=== PATIENT | male | born 1960 | race Caucasian/White ===

== ENCOUNTER 2022-07-17 06:08 | Day surgery (SDC) | payer OTHER, SELFPAY ==
[2022-07-17] VITALS (15 sets, daily range): BP systolic 100–145; BP diastolic 70–95; PULSE 64–85; RESP 11–111; TEMP 36.1–36.6; O2SAT 89–97; BMI 31.6
[2022-07-17] MEDS: LACTATED RINGERS 1000 ML 1,000 ML 100 ML IV ×2 (06:51→10:09)
[2022-07-17] MEDS: SODIUM CHLORIDE 0.9 % (FLUSH) 10 ML SYRINGE IVF (06:52)
--- NOTE | 2022-07-17 06:58 | SUR.PREOP ---
TIME?OUT:?716 PT/RN/MDA?VERIFICATION?OF?SURGICAL?SITE,?PROCEDURE,?AND?CONSENT OBTAINED?PRIOR?TO?INVASIVE?PROCEDURE.716
--- NOTE | 2022-07-17 07:23 | W.PM.NB ---
Nerve Block Nerve Block Time Seen by Provider: 07:20 Date Seen: 07/17/22 Type of block requested by surgeon for post-operative analgesia: supraclavicular Side: left Time out performed: Yes Verification of patient name: Yes Verification of date of : Yes Site marking: site marked Name of person performing procedure: Keaton Continuous monitoring Was continuous monitoring of O2 sat, B/P, air deodorizer servicer, recorded every 15 minutes?: Yes Procedure Checklist: sterile prep, needles and gloves Ultrasound guided. Images saved: Yes Medications given in 5ml increments after negative aspiration: Ropivicaine %: 0.5 mL: 20 Needle gauge: 22 Decadron (mg): 10 Precedex (mcg): 25 Patient tolerated procedure well: Yes Block Charges Block Charge (with Pro Fee): Brachial Plexus Use of Ultrasound Machine for Block: Yes- US Guidance/pain block
--- NOTE | 2022-07-17 07:24 | W.ANESCHARGE ---
Anesthesia Charges Start Date/Time Anesthesia Start Date: 07/17/22 Anesthesia Start Time: 07:52 Stop Date/Time Anesthesia Stop Date: 07/17/22 Anesthesia Stop Time: 10:52
[2022-07-17] MEDS: EPINEPHrine 1 MG in SODIUM CHLORIDE IRRIG SOLUTION 3,000 ML 3001 MG IRRIGATION ×8 (08:00→10:30)
[2022-07-17] MEDS: CEFAZOLIN 2 GM in 0.9 % SODIUM CHLORIDE Mini-bag 100 ML IVPB (08:15)
--- NOTE | 2022-07-17 10:34 | P.ORPRC_ITS ---
Procedure Note Date of procedure: 07/17/22 Procedure: PREOPERATIVE DIAGNOSES: 1. Left shoulder rotator cuff tear - supraspinatus, infraspinatus, subscapularis with some atrophy 2. Left shoulder AC degenerative joint disease, primary, moderate-severe POSTOPERATIVE DIAGNOSES: 1. Left shoulder rotator cuff tear - supraspinatus, infraspinatus, and subscapularis with some atrophy 2. Left shoulder anterior and superior labral tearing 3. Left shoulder long head of the biceps rupture, remote 4. 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 Left shoulder arthroscopic rotator cuff repair. 2. Left shoulder arthroscopic extensive glenohumeral debridement SURGEON: Boris Osuna MD [employer] CONSULTANT: Brandon GERARD. Of note, a skilled music assistant was critical for this case to aide in patient positioning, suture manipulation, arm positioning, instrument positioning, and closure. ANESTHESIA: General plus preoperative supraclavicular block. EBL: 20 mL IMPLANTS: Arthrex 4.75 mm BioComposite SwiveLock suture anchor (x1); 2.6 mm FiberTak RC (x1); 5.5 mm BioComposite corkscrew suture anchor (x1); 5.5 mm BioComposite SwiveLock suture anchor (x2). COMPLICATIONS: None evident INDICATIONS: The patient is a pleasant, 61-year-old male who has experienced left shoulder pain that has been increasing in recent time. Physical exam and imaging were consistent with a rotator cuff tear. Given their findings, as well as the weakness and pain, and inadequate response to nonoperative management, recommendation was made for surgery. FINDINGS: Exam under anesthesia revealed stable shoulder with excellent range of motion. The diagnostic arthroscopy revealed grade 3 chondromalacia humeral head. Glenoid was relatively healthy with grade 2 chondromalacia. The Subscapularis tendon was torn and retracted medially along with the, tissue. The long head of the biceps tendon was absent from the joint consistent with remote tear. The superior rotator cuff tendon was found to be torn full- thickness through the entire supraspinatus, infraspinatus in addition to the upper border subscapularis. The labrum was degeneratively frayed in the anterior and superior aspects. No loose bodies were identified within the pouch or subscapularis recess. PROCEDURE: Following a thorough discussion of risks, benefits, and alternatives, consent was obtained and the left shoulder was marked. The patient was brought to the operating room and placed supine on the operating table. Induction of anesthesia was completed after preoperative supraclavicular block was administered in preop holding. Appropriate time out was performed identifying proper patient, site, and procedure. 2 g IV Ancef was administered within 1 hour of incision preoperatively. The left upper extremity was prepped and draped in the appropriate sterile fashion using ChloraPrep prep. This was after the patient was positioned in the beach chair with their head in neutral alignment and all bony prominences well padded. The shoulder was insufflated with 20mL of normal saline via an 18g spinal needle from a posterior approach. An 11 blade skin incision allowed a blunt trochar to be inserted and diagnostic arthroscopy to be performed with the findings as noted above. An anterior portal was established with an outside in technique. This allowed the probe to be inserted and confirm the diagnostic arthroscopic findings. The shaver was then inserted and allowed debridement of the anterior and superior labrum as well as the biceps stump, lesser tuberosity bone tissue, humeral head chondral tissue, and pathologic remaining rotator cuff tissue. Following this, the upper border subscapularis was repaired after debriding the lesser tuberosity with the shaver and [place] cautery. Subscapularis was captured in horizontal mattress fashion with a fiber tape suture. The tails were brought to a single anchor in the lesser tuberosity with excellent reapproximation of the subscap tendon and good excursion/tension. Thereafter, the subacromial space was entered. Here, a complete bursectomy was performed. Previous subacromial decompression was evident. 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 As it measured approximately 15 mm medial-lateral and 10 mm anterior-posterior, we decided to let this be given a significant amount of the deltoid attachment remained. A decision was made to avoid a distal clavicle excision given the fair rotator cuff tissue quality. While the repair was possible, if this retear size, he will be at risk for any anterior superior escape given his prior S.A. D performed elsewhere and a distal clavicle excision would only increase such a risk. Further inspection of the supraspinatus and infraspinatus rotator cuff was performed. This identified the tear as noted above. The margins of the tear were debrided, and the greater tuberosity was debrided with a combination of the apollo cautery, shaver, and bur on reverse setting. [After gentle decortication, 2 medial anchors were placed. A 2.6 mm FiberTak RC was placed anterior medial. 5.5 mm BioComposite corkscrew suture anchor posterior medial. All 4 tails were passed from each anchor independently and were tied sequentially to help sequentially relieve the tension. The tails were then brought to 2 separate lateral anchors. Prior to anchor commercial relief driver removal, the eyelet sutures were tugged on for each anchor and found that the anchor had excellent stability within the bone. The shoulder did require some abduction to help with reapproximation of the rotator cuff. Thus, a bump was placed in the sling eventually. The shoulder was placed through range of motion and found to be stable. The rotator cuff was re-probed and found to be stable. Instruments were removed. Excess fluid was drained, closure performed with 4-0 Monocryl and Steri-Strips. Dressings were applied. Sling was applied. The patient was awoken from anesthesia and transferred to the PACU in stable condition. A skilled music assistant was critical for this case to aid in patient positioning, limb positioning, skill to manipulate arthroscopic instruments and camera, suture management, patient safety, and closure. PLAN: 1. Elbow, forearm, wrist and digit range of motion of operative extremity as tolerated. 2. Encouraged ice. 3. Percocet for pain as needed. 4. Sling at all times except for ROM and showering. 5. Follow up with PA visit in 1-2 weeks for wound check. Initiate physical therapy following that visit for passive range of motion. Initiate active assisted range of motion at 4-6 weeks. Therapy progression will be slow given the massive tear size and tissue quality. May do pendulums now.
--- NOTE | 2022-07-17 12:33 | W.ANESCHARGE ---
Anesthesia Charges Start Date/Time Anesthesia Start Date: 07/17/22 Anesthesia Start Time: 07:52 Stop Date/Time Anesthesia Stop Date: 07/17/22 Anesthesia Stop Time: 10:56
--- NOTE | 2022-07-17 12:34 | W.ANESCHARGE ---
Anesthesia Charges Start Date/Time Anesthesia Start Date: 07/17/22 Anesthesia Start Time: 07:52 Stop Date/Time Anesthesia Stop Date: 07/17/22 Anesthesia Stop Time: 10:56
== END 2022-07-17 14:00 | disposition home or self-care (01) ==
PROVIDERS: PCP Surgery; Visit Provider Orthopaedic Surgery Sports Medicine
PROC: (CPT 29805; principal; 2022-07-17 07:45)
DX: M75.122 Complete rotator cuff tear or rupture of left shoulder, not specified as traumatic (principal); M19.012 Primary osteoarthritis, left shoulder; S43.432A Superior glenoid labrum lesion of left shoulder, initial encounter; S46.112A Strain of muscle, fascia and tendon of long head of biceps, left arm, initial encounter; M94.212 Chondromalacia, left shoulder; G89.18 Other acute postprocedural pain
CPT/HCPCS: 29827; 29823; 01630; 64415; 76942; C1713; J0171; J0330; J0690; J1100; J2250; J2370; J2704; J2710; J2795; J3010; J7120; L3670

== ENCOUNTER 2022-09-18 13:45 | Outpatient (RCR) | payer OTHER, SELFPAY | END 2022-11-07 14:34 | disposition home or self-care (01) | PROVIDERS: PCP Surgery; Visit Provider Physician Assistant Surgical | DX: Z98.890 Other specified postprocedural states (principal); M25.512 Pain in left shoulder; M62.81 Muscle weakness (generalized); Z51.89 Encounter for other specified aftercare | CPT/HCPCS: 97110; 97140; 97161; 97530 ==

== ENCOUNTER 2022-10-18 19:09 | Emergency (ER) | payer OTHER, SELFPAY ==
[2022-10-18] VITALS (8 sets, daily range): BP systolic 143–198; BP diastolic 89–104; PULSE 68–109; RESP 16–18; TEMP 36.7; O2SAT 94–99; BMI 31.7
[2022-10-18] MEDS: 0.9 % SODIUM CHLORIDE 1000 ml 1,000 ML IV (19:15)
[2022-10-18] MEDS: predniSONE 20 MG TABLET 60 MG PO (19:15)
[2022-10-18] MEDS: EPINEPHrine 0.3 MG PEN IM (19:15)
[2022-10-18] MEDS: FAMOTIDINE 10 MG/ML inj 20 MG IVP (19:20)
--- NOTE | 2022-10-18 19:27 | ED_ITS ---
HPI - Allergic Reaction General Time Seen by Provider: 17:15 Date Seen: 10/18/22 Chief complaint: Allergic Reaction Stated complaint: Bee sting, allergic--hives, face numb, swelling Time Seen by Provider: 10/18/22 19:27 Source: patient, RN notes reviewed and old records reviewed Mode of arrival: ambulatory Limitations: no limitations History of Present Illness HPI narrative: Patient is a very pleasant 62-year-old gentleman states healthy who comes to the emergency room with an allergic reaction after sustaining a bee sting. He believes that he was stung by a ground bee. He notes that he found some bees in his house and he was distress trying to destroyed the nest when he had a single sting to the right knee. Approximately 15 minutes after this he started noticing that he had hives around that area and he had itching of his palms. He then noted some swelling of his lower lip. He states that he took 2 Benadryl and did not feel that he was improving and thus he and his girlfriend per came to the emergency room. He notes however that during the ride he did not feel that he was worsening. Here in the emergency room patient notes no difficulty breathing but does feel that his lips are swollen. He denies difficulty swallowing, chest pain, nausea or vomiting. He notes that hives are also in his axilla. He states that yesterday he was stung by a wasp in last week had an episode of being stung at least 6 times any did not react at that time. He feels that he is dealing with ground bees. Patient is seen in the emergency room at 1915 hours. Staying was approximately 1 hour ago. complaint: allergic reaction, hives and facial swelling Related Data Home Medications Medication Instructions Recorded Confirmed atorvastatin 20 mg tablet 20 mg PO QDAY 05/27/22 10/18/22 losartan 50 mg tablet 50 mg PO DAILY 05/27/22 10/18/22 Previous Rx's Medication Instructions Recorded epinephrine 0.3 mg/0.3 mL 0.3 ml IM Q5-15M PRN #2 ea 10/18/22 injection, auto-injector (EpiPen 2-Alfredo) prednisone 20 mg tablet 20 mg PO BID #10 tabs 10/18/22 Allergies Allergy/AdvReac Type Severity Reaction Status Date / Time bee venom protein (honey bee) Allergy Intermediate Hives Verified 10/18/22 19:29 Review of Systems Status of ROS Reports: 10 or more systems reviewed and unremarkable except as noted in History and below Const Denies: fever, chills or fatigue Eyes Denies: change in vision ENMT Reports: swelling of lips/tongue; Denies: throat pain, neck pain, throat swelling, difficulty swallowing or hoarseness Cardio Denies: chest pain, palpitations or shortness of breath with exertion Resp Denies: shortness of breath, cough, wheezing or stridor GI Denies: abdominal pain, nausea, vomiting or difficulty swallowing Denies: painful urination Musculo Denies: neck pain Neuro Denies: headache, numbness in extremities or weakness in extremities Endo Denies: fatigue Allergy/Immuno Denies: throat swelling or wheezing PFSH PFSH Medical History Tear of left biceps muscle ?S46.212A - Strain of muscle, fascia and tendon of other parts of biceps, left arm, initial encounter (ICD-10) Dislocation of shoulder region ?S43.006A - Unspecified dislocation of unspecified shoulder joint, initial encounter (ICD-10) Anterior dislocation of right shoulder ?S43.014A - Anterior dislocation of right humerus, initial encounter (ICD-10) Surgical History S/P rotator cuff repair (07/17/22) ?Z98.890 - Other specified postprocedural states (ICD-10) Social History Smoking Status: Never smoker Do you use any of these nicotine containing products: None Second hand tobacco smoke exposure: No How often do you have a drink containing alcohol: never AUDIT-C Alcohol total score: 0 Non-prescribed substance use: denies use Caffeine: Yes (coffee 8c/day) Exam Narrative: Exam Narrative: Alert and oriented. Face is flushed. He does have noticeable swelling of his lower lip. Possibly slight swelling of his tongue but no clearing of his throat stridor or difficulty with talking. Heart with a tachycardic rate but normal rhythm. Lungs are clear bilaterally without wheezing. Abdomen soft nontender. Examination of the skin shows lacy erythematous raise hives on the right knee but also a lieu lacy her appearance on the left knee and on the trunk. Moving all extremities. Const: Vital Signs, click to edit/add: Vital Signs - 24 hr 10/18/22 19:15 10/18/22 19:27 10/18/22 19:36 Temperature 98.1 F Pulse Rate 107 H Pulse Rate [Right Pulse Oximeter] 108 H Respiratory Rate 18 18 Blood Pressure 149/92 H Blood Pressure [Le ft Upper Arm] 198/89 H Pulse Oximetry 95 99 94 Oxygen Delivery Me thod Room Air 10/18/22 20:02 10/18/22 20:32 Temperature Pulse Rate 109 H 101 H Pulse Rate [Right Pulse Oximeter] Respiratory Rate 16 Blood Pressure 166/104 H 159/99 H Blood Pressure [Le ft Upper Arm] Pulse Oximetry 94 94 Oxygen Delivery Me thod Documenting provider has reviewed patient's vital signs: yes Course Course Hospital Course: At this time patient is a seems to be experiencing a systemic reaction to of be staying. Given this swelling of his lips feel it is necessary to give him EpiPen. Will place an IV and check labs to include CBC and comprehensive panel. Will also give 1 L of normal saline, famotidine 20 mg IV, prednisone 60 mg p.o.. Patient will be on the quality assurance monitor body. He is told he will likely be here 4-6 hours. Reevaluation(s) Reevaluation #1: Patient noted to be much improved. He states his swelling is almost completely gone. He has no more tingling of his tongue. His hives have resolved. He is wishing to go home. He lives in [place] which is a distance from here. I did state that 6 hours observation is what normally is recommended but I would be okay with 4 hours as long as he has no recurrence of symptoms. He does agree to this. Vital Signs Vital signs: Initial Vital Signs Pulse Oximetry 95 10/18/22 19:15 Vital Signs Pulse Oximetry 95 10/18/22 19:15 Temperature 98.1 F 10/18/22 19:27 Pulse Rate 101 H 10/18/22 20:32 Respiratory Rate 16 10/18/22 20:02 Blood Pressure 159/99 H 10/18/22 20:32 Pulse Oximetry 94 10/18/22 20:32 Oxygen Delivery Method Room Air 10/18/22 19:27 MDM - Allergic Reaction MDM Narrative Medical decision making narrative: 1. Allergic reaction bee sting- Patient received EpiPen, famotidine 20 mg IV, prednisone 60 mg p.o., 1 L of normal saline. Has had resolution of his hives. Almost complete resolution of the swelling of his upper lip. He has agreed to stay up to 4 hours here in the emergency room given the fact that his home is rather remote. upon discharge discharge, he will continue Benadryl 50 mg every 6 hours last dose tomorrow night. He will continue prednisone 20 mg p.o. b.i.d. for 2 more days 1st dose tomorrow morning. Patient is requesting medications be sent to [facility] in [place]. Will also send prescription for EpiPen duo pack. He has been watching videos about epi administration while he has been in the ER. 2. Hypokalemia -mild at 3.1. Replace with 50 mEq p.o. potassium. Recommend increased potassium containing foods such as potatoes and bananas. 3. Disposition -patient has agreed to stay up to 4 hours. He initially wanted to go home. He does understand that literature often support 6 hours but does not want to stay that long. After 4 hours will allow him to go home. We did talk about his choice of hospital since he does live approximately 30 minutes away. [place] [id number] hospital is actually closer at 20 minutes. I have also asked him to look into what seek a hospital which may be even closer than that. He really needs to go to the nearest appropriate facility. Or call 911 as even 1st responders have the ability to give epinephrine. We talked about the chance of him reacting much more quickly and more violently lid next time to any sort of bee sting. Dictation done with voice recognition, and as a result, wrong word or [id number] substitutions may have occurred.? There may be errors in the script that have gone undetected.? Please consider this when interpreting information found in this chart. Medical Records Attestation: I reviewed the patient's medical records. Lab Data Attestation: I reviewed the patient's lab results. Labs: Lab Results 10/18/22 Range/Units 19:15 WBC 9.30 (4.50-11.00) K/uL RBC 5.26 (4.30-5.90) m/uL Hgb 15.5 (13.5-17.5) gm/dL Hct 45.1 (37.0-53.0) % MCV 86 (80-100) fL MCH 30 (26-34) pg MCHC 34 (32-36) gm/dL RDW Coeff of Amirah 12.0 (11.5-15.5) % Plt Count 302 (140-440) K/uL Neut % (Auto) 52.6 (42.0-72.0) % Lymph % (Auto) 36.7 (20-44) % Catron % (Auto) 8.3 (0.0-11.0) % Eos % (Auto) 1.4 (0.0-7.0) % Baso % (Auto) 0.6 (0.0-3.0) % Neut # (Auto) 4.89 (1.7-7.0) K/uL Lymph # (Auto) 3.41 H (0.90-2.90) K/uL Catron # (Auto) 0.80 (0.00-0.90) K/UL Eos # (Auto) 0.13 (0.00-0.50) K/uL Baso # (Auto) 0.06 (0.00-0.30) K/uL Abs Immat Gran (auto) 0.04 (0.00-0.30) K/uL Imm/Tot Granulo (auto) 0.4 % Sodium 139 (135-149) mmol/L Potassium 3.1 L (3.6-5.1) mmol/L Chloride 104 (96-114) mmol/L Carbon Dioxide 23 (20-32) mmol/L BUN 17 (7-30) mg/dL Creatinine 0.8 (0.5-1.5) mg/dL Estimated Creat Clear 98.19 Estimated GFR 101 ml/min Glucose 159 H (60-115) mg/dL Calcium 9.2 (8.4-10.6) mg/dL Total Bilirubin 0.4 (0.1-1.5) mg/dL AST 35 (12-35) U/L ALT 43 (4-50) U/L Alkaline Phosphatase 89 (40-150) U/L Total Protein 7.2 (6.0-8.3) g/dL Albumin 4.2 (3.3-5.0) g/dL Critical Care Time Critical Care Time Critical Care Time: Yes Attestation: The patient required my highest level preparedness to intervene emergently and I personally spent this critical care time directly and personally managing the patient. This critical care time included: Obtaining a history; Examining the patient; Pulse oximetry; Ordering and reviewing of studies; Arranging urgent treatment with development of a management plan; Evaluation of patients response to treatment; Frequent reassessment discussions with other providers. This critical care time was performed to assess and manage the high probability of imminent life-threatening deterioration that could result in multiorgan failure. It was exclusive of separate billable procedures and treating other patients and teaching time. Total Critical Care Time in Minutes: 50 Discharge Plan Discharge Clinical Impression: Allergic reaction to bee sting, Acute hypokalemia Patient Disposition: Home, Self-Care Condition: Improved Additional Instructions: 1. continue Benadryl 50 mg or 2 tablets every 6 hours your last dose will be tomorrow night. 2.Prednisone is a steroid and you were given a large dose tonight. You will continue this medication on Friday and Friday. 20 mg twice a day. 3. EpiPen Double pack is ordered for you. Make sure you always have an EpiPen with you as you are likely to react even worse the next time you are stung. If you must give yourself epinephrine you will need to go to the nearest medical facility or call 911. Return as needed Prescriptions: New epinephrine [EpiPen 2-Alfredo] 0.3 mg/0.3 mL auto-injector 0.3 ml IM Q5-15M PRNQty: 2 0RF Rx Instructions: do not exceed 3 doses per episode prednisone 20 mg tablet 20 mg PO BID Qty: 10 0RF No Action atorvastatin 20 mg tablet 20 mg PO QDAY losartan 50 mg tablet 50 mg PO DAILY Follow Up/Referrals: Terry Sharma MD [Primary Care Provider] - Stand Alone Forms: [employer] Info Instructions
[2022-10-18 19:36] LABS: Basophils Absolute Auto 0.06 K/uL (0.00-0.30); Basophils Percent Auto 0.6 % (0.0-3.0); Eosinophils Absolute Auto 0.13 K/uL (0.00-0.50); Eosinophils Percent Auto 1.4 % (0.0-7.0); Hematocrit 45.1 % (37.0-53.0); Hemoglobin* 15.5 gm/dL (13.5-17.5); Immature Granulocytes Abs Auto 0.04 K/uL (0.00-0.30); Immature Granulocytes Pct Auto 0.4 %; Lymphocytes Absolute Auto 3.41 K/uL (0.90-2.90); Lymphocytes Percent Auto 36.7 % (20-44); Mean Corpuscular HGB Conc 34 gm/dL (32-36); Mean Corpuscular Hemoglobin 30 pg (26-34); Mean Corpuscular Volume 86 fL (80-100); Monocytes Percent Auto 8.3 % (0.0-11.0); Neutrophils Absolute Auto 4.89 K/uL (1.7-7.0); Neutrophils Percent Auto 52.6 % (42.0-72.0); Platelet Count* 302 K/uL (140-440); Red Blood Count 5.26 m/uL (4.30-5.90)
[2022-10-18 19:37] LABS: Slide Review Reflex No
[2022-10-18 19:49] LABS: Albumin* 4.2 g/dL (3.3-5.0)
[2022-10-18 19:50] LABS: Chloride* 104 mmol/L (96-114); Potassium* 3.1 mmol/L (3.6-5.1); Sodium* 139 mmol/L (135-149)
[2022-10-18 19:52] LABS: Alkaline Phosphatase* 89 U/L (40-150); Aspartate Amino Transferase* 35 U/L (12-35); Bilirubin Total* 0.4 mg/dL (0.1-1.5); Blood Urea Nitrogen* 17 mg/dL (7-30); Carbon Dioxide* 23 mmol/L (20-32); Creatinine* 0.8 mg/dL (0.5-1.5); Est. Creatinine Clearance* 98.19; Estimated Glomerular Filt Rate 101 ml/min; Total Protein* 7.2 g/dL (6.0-8.3)
[2022-10-18 19:53] LABS: Alanine Aminotransferase* 43 U/L (4-50); Calcium* 9.2 mg/dL (8.4-10.6); Glucose* 159 mg/dL (60-115)
[2022-10-18] MEDS: POTASSIUM BICARB 25 MEQ EFFERVESCENT TAB 50 MEQ PO (22:58)
== END 2022-10-18 23:09 | disposition home or self-care (01) ==
PROVIDERS: Emergency Provider Family Medicine; PCP Surgery
DX: T63.441A Toxic effect of venom of bees, accidental (unintentional), initial encounter (principal); L50.9 Urticaria, unspecified; E87.6 Hypokalemia
CPT/HCPCS: 36415; 80053; 85025; 94761; 96361; 96372; 96374; 99284; 99291; A9270; J0171; J7030; J7512; S0028

== ENCOUNTER 2023-02-03 08:51 | Day surgery (SDC) | payer OTHER, SELFPAY ==
[2023-02-03] VITALS (13 sets, daily range): BP systolic 134–163; BP diastolic 89–100; PULSE 70–85; RESP 12–16; TEMP 36.6–37.2; O2SAT 92–97; BMI 34.2
[2023-02-03] MEDS: LACTATED RINGERS 1000 ML 1,000 ML 100 ML IV (09:00)
[2023-02-03] MEDS: SODIUM CHLORIDE 0.9 % (FLUSH) 10 ML SYRINGE IVF (09:36)
--- NOTE | 2023-02-03 10:32 | P.GSOP_ITS ---
Operative Note Pre-op diagnosis: Recurrence incarcerated umbilical hernia Post-op diagnosis: Same Type of Procedure: Open repair with mesh of 2 cm recurrent, incarcerated umbilical hernia. Indications: The patient is a 8-year-old male who presents with a painful umbilical hernia. He is unable to reduce this. He does have a history of prior hernia repair approximately 20 years ago. After discussion of options he agreed to proceed with repair. Procedure Description: After discussing the risks and benefits of the procedure, the patient signed informed consent.? The operative site was marked and the patient was brought to the operating room and placed on the operating table in supine position.? Care was taken to pad the patient's pressure points.?? The patient was then intubated by anesthesia.?? The operative site was then prepped and draped in the usual sterile fashion.? A time-out was then performed. The patient's hernia was noted to be below the patient's previous transverse supraumbilical incision, therefore I elected to create a supraumbilical incision in the midline above the umbilicus extending down to the right of the umbilicus. Dissection was taken down into the subcutaneous tissue using cautery. The hernia sac was entered. There was incarcerated fat contained within. This was carefully divided with cautery to ensure no bowel or intra-abdominal structures were contained within the hernia. The fat was discarded. Once this was done the fascial edges were examined. The hernia measured 2 cm. The fascial edges were cleared and it was evident that this was a recurrence of a prior hernia given the scar tissue which was present. I did not palpate any mesh, however. Once the fascial edges were cleared anteriorly, I created a preperitoneal pocket using cautery. Hemostasis was achieved with cautery. Once this was done, I obtained a piece of medium Ventralex ST mesh. This was placed in the preperiton eal space. This was secured to the fascia using 2-0 PDS suture. The tails were then trimmed and the fascial defect was closed with a running 0 Vicryl suture. The umbilicus was reapproximated to the fascia. The wound was then closed in layers with 3 0 Vicryl dermal and 4-0 Monocryl running subcuticular suture. Glue was applied. A cotton ball and Tegaderm dressing were then applied. The patient was then woken and transported to the recovery area in stable condition. ? The patient tolerated the procedure well. Findings: 2 cm umbilical hernia containing non reducible fat. Anesthesia: GETA Surgeon: Abena Freitas MD Estimated blood loss (mL): 5 Condition: stable Disposition: PACU Date of procedure: 02/03/23
--- NOTE | 2023-02-03 10:32 | W.PM.H&PU ---
History & Physical Update History & Physical Update H&P Reviewed and patient assessed: No changes noted
[2023-02-03] MEDS: CEFAZOLIN 2 GM INJ IVP (10:45)
[2023-02-03] MEDS: BUPIVACAINE 0.25% 30 ML INJECTION (11:41)
[2023-02-03] MEDS: fentaNYL 100 MCG/2 ML inj 50 MCG IVP (12:12)
[2023-02-03] MEDS: HYDROCODONE-ACETAMIN 5-325 MG 1 TAB PO (12:56)
--- NOTE | 2023-02-03 14:34 | W.ANESCHARGE ---
Anesthesia Charges Start Date/Time Anesthesia Start Date: 02/03/23 Anesthesia Start Time: 10:37 Stop Date/Time Anesthesia Stop Date: 02/03/23 Anesthesia Stop Time: 11:59
--- NOTE | 2023-02-04 08:14 | W.ANESCHARGE ---
Anesthesia Charges Start Date/Time Anesthesia Start Date: 02/03/23 Anesthesia Start Time: 10:37 Stop Date/Time Anesthesia Stop Date: 02/03/23 Anesthesia Stop Time: 11:59
== END 2023-02-03 13:44 | disposition home or self-care (01) ==
PROVIDERS: PCP Surgery; Visit Provider Surgery
PROC: (CPT 49614; principal; 2023-02-03 10:00)
DX: K42.0 Umbilical hernia with obstruction, without gangrene (principal)
CPT/HCPCS: 49614; 00830; A9270; C1781; J0330; J0665; J0690; J1100; J2250; J2405; J2704; J2710; J3010; J7120

== ENCOUNTER 2023-12-07 13:39 | Emergency (ER) | payer BC, SELFPAY ==
--- NOTE | 2023-12-07 13:41 | ED.GENADULT ---
HPI - General Adult General Time Seen by Provider: 13:42 Date Seen: 12/07/23 Chief complaint: Allergic Reaction Stated complaint: possible allergic reaction, Time Seen by Provider: 12/07/23 13:41 Source: patient, RN notes reviewed and old records reviewed Mode of arrival: ambulatory Limitations: no limitations History of Present Illness HPI narrative: 63-year-old male who presents today with concern for possible allergic reaction. 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 Was cleaning out his barn today, no symptoms then but when he was done in eating, noticed a feeling of swelling in his throat, itching in his ears, now some facial swelling as well. No difficulty breathing or swallowing, no abdominal pain, nausea, or vomiting, no rash. Took Zyrtec today but otherwise no medications for this specifically. Related Data Home Medications ?Medication ?Instructions ?Recorded ?Confirmed losartan 50 mg tablet 50 mg PO DAILY 05/27/22 12/07/23 rosuvastatin 5 mg tablet 5 mg PO DAILY 12/07/23 12/07/23 Previous Rx's ?Medication ?Instructions ?Recorded epinephrine 0.3 mg/0.3 mL 0.3 ml IM Q5-15M PRN #2 ea 10/18/22 injection, auto-injector (EpiPen 2-Alfredo) epinephrine 0.3 mg/0.3 mL 0.3 mg (0.3 mL) IM Q5-15M PRN #2 ea 12/07/23 injection, auto-injector (EpiPen 2-Alfredo) prednisone 10 mg tablets in a dose See Rx Instructions PO .COMPLEX 12/07/23 pack #21 ea Allergies Allergy/AdvReac Type Severity Reaction Status Date / Time bee venom protein (honey bee) Allergy Intermediate Hives Verified 10/18/22 19:29 [facility] Medical History (Updated 12/07/23 @ 14:57 by Quentin Mabry MD) Primary hypertension ?I10 - Essential (primary) hypertension (ICD-10) Tear of left biceps muscle ?S46.212A - Strain of muscle, fascia and tendon of other parts of biceps, left arm, initial encounter (ICD-10) Dislocation of shoulder region ?S43.006A - Unspecified dislocation of unspecified shoulder joint, initial encounter (ICD-10) Anterior dislocation of right shoulder ?S43.014A - Anterior dislocation of right humerus, initial encounter (ICD-10) Surgical History (Updated 01/31/23 @ 09:23 by Lauren Gibbons RN) H/O umbilical hernia repair ?Z98.890 - Other specified postprocedural states (ICD-10) ?Z87.19 - Personal history of other diseases of the digestive system (ICD-10) S/P rotator cuff repair (07/17/22) ?Z98.890 - Other specified postprocedural states (ICD-10) Social History Smoking Status: Never smoker Do you use any of these nicotine containing products: None Second hand tobacco smoke exposure: No How often do you have a drink containing alcohol: never AUDIT-C Alcohol total score: 0 Non-prescribed substance use: denies use Caffeine: Yes (coffee 8c/day) Exam Narrative: Exam Narrative: General: Well-developed and well-nourished, no acute distress. Frequent cough and throat clearing Head: Atraumatic and normocephalic Eyes: Pupils are equal reactive, extraocular motions intact, conjunctiva clear ENT: External nose and ears are normal, posterior pharynx without erythema or exudate Neck: No midline cervical tenderness, full spontaneous range of motion the neck, trachea midline, no adenopathy Heart: Regular rate and rhythm no murmurs or thrills Lungs: Clear to auscultation bilaterally without wheezes or crackles Abdomen: Soft, nontender, nondistended with active bowel sounds Musculoskeletal: No tenderness, deformity, or edema Neurologic: Awake, alert, and oriented x3, no gross focal neurologic deficits, cranial nerves intact as tested Psych: Mood and affect are appropriate Skin: No rashes Const: Vital Signs, click to edit/add: Vital Signs - 24 hr 12/07/23 13:46 12/07/23 14:15 12/07/23 14:15 Temperature 98.3 F Pulse Rate 88 Pulse Rate [Pulse Oximeter] 90 Respiratory Rate 18 16 Blood Pressure [Ri ght Upper Arm] 135/82 Pulse Oximetry 95 98 94 Oxygen Delivery Me thod Room Air Course Course ED Course: Patient seen and examined, reviewed most recent clinic visit from November 09 which was for allergy shot with be, wasp, vespid with some redness noted after. Patient presents today with sensation of swelling and itching in his throat, itching in the ears, and sensation of facial swelling. No hives, no abdominal pain. On exam here vital is stable, frequently clearing the throat and coughing. Lungs are clear with no wheezing or crackles, no stridor, no hoarseness or voice changes. No hives noted. Concern for possible allergic reaction, upper respiratory infection possible as well but very abrupt onset. Patient will be given epinephrine, Solu-Medrol, Benadryl IV and will observe in the department Reevaluation(s) Time of Reevaluation #1: 14:55 Reevaluation #1: Patient recheck, resting comfortably, reports symptoms are resolved. Will continue to monitor and anticipate discharge if remains stable. Vital Signs Vital signs: Initial Vital Signs Temperature 98.3 F 12/07/23 13:46 Temperature Source Temporal Artery Scan 12/07/23 13:46 Pulse Rate 90 12/07/23 13:46 Respiratory Rate 18 12/07/23 13:46 Blood Pressure 135/82 12/07/23 13:46 Blood Pressure Mean 99 12/07/23 13:46 Blood Pressure Position Supine 12/07/23 13:46 Pulse Oximetry 95 12/07/23 13:46 Oxygen Delivery Method Room Air 12/07/23 13:46 Vital Signs Temperature 98.3 F 12/07/23 13:46 Pulse Rate 90 12/07/23 13:46 Respiratory Rate 18 12/07/23 13:46 Blood Pressure 135/82 12/07/23 13:46 Pulse Oximetry 95 12/07/23 13:46 Oxygen Delivery Method Room Air 12/07/23 13:46 Temperature 98.3 F 12/07/23 13:46 Pulse Rate 88 12/07/23 14:15 Respiratory Rate 16 12/07/23 14:15 Blood Pressure 135/82 12/07/23 13:46 Pulse Oximetry 94 12/07/23 14:15 Oxygen Delivery Method Room Air 12/07/23 13:46 Medications Administered Medications: Discontinued Medications Generic Name Dose Route Start Last Admin Trade Name Freq PRN Reason Stop Dose Admin Diphenhydramine HCl 50 mg 12/07/23 13:50 12/07/23 14:01 Diphenhydramine 50 Mg/Ml Inj IVP 12/07/23 13:51 50 mg ONCE ONE Administration Epinephrine HCl 0.3 mg 12/07/23 13:51 12/07/23 13:57 Epinephrine 0.3 Mg Pen IM 12/07/23 13:52 0.3 mg ONCE ONE Administration Methylprednisolone Sodium Succinate 125 mg 12/07/23 13:50 12/07/23 14:01 Methylprednisolone Sod Succ 62.5 Mg/Ml (125) IVP 12/07/23 13:51 125 mg ONCE ONE Administration Discharge Plan Discharge Clinical Impression: Allergic reaction Patient Disposition: Home, Self-Care Condition: Stable Instructions: General Allergic Reaction (ED) Additional Instructions: Continue daily Zyrtec Take Benadryl 50 mg every 6 hours for 24 hours starting at 8:00 p.m. tonight, then every 6 hours as needed Take prednisone as prescribed Contacted the allergy clinic tomorrow as they may want to delay your injection Activity Level: Activity as Tolerated Discharge Diet: Regular Prescriptions: New prednisone 10 mg tablets,dose pack See Rx Instructions .ROUTE .COMPLEX Qty: 21 0RF Rx Instructions: orally per package directions epinephrine [EpiPen 2-Alfredo] 0.3 mg/0.3 mL auto-injector 0.3 mg IM Q5-15M PRNQty: 2 0RF Rx Instructions: do not exceed 3 doses per episode No Action losartan 50 mg tablet 50 mg PO DAILY epinephrine [EpiPen 2-Alfredo] 0.3 mg/0.3 mL auto-injector 0.3 ml IM Q5-15M PRNQty: 2 0RF Rx Instructions: do not exceed 3 doses per episode rosuvastatin 5 mg tablet 5 mg PO DAILY Follow Up/Referrals: Terry Sharma MD [Primary Care Provider] - Stand Alone Forms: [employer] Info Instructions
[2023-12-07 13:46] VITALS: BP 135/82; PULSE 90; RESP 18; TEMP 36.8; O2SAT 95; BMI 30.4
[2023-12-07] MEDS: EPINEPHrine 0.3 MG PEN IM (13:57)
--- OUTSIDE RECORDS SUMMARY | 2023-12-07 13:59 | XMS_ITS | Clinical Summary ---
Author Organization [employer] [facility] Address [place], [place] [address] Care Team Providers Care Respite Provider Name Role Phone Terry Sharma MD Primary Care Provider [phone] Allergies Active Allergy Reactions Criticality Noted Date Comments Venom-Honey Bee Hives 12/31/2022 Medications Medication Sig Dispensed Refills Start Date End Date Status EPINEPHrine (EPIPEN) 0.3 mg/0.3 mL auto-injector Inject 1 Pen intramuscular each time if needed. 10/19/2022 Active CPAPIndications:SABRINA (obstructive sleep apnea) CPAP machine for home use at pressure 6-15 cmw, full face mask x1/3month with a full face cushion x1/mo 1 Each 11 05/01/2023 Active losartan (COZAAR) 100 mg tabletIndications:HT N (hypertension) Take 1 Tablet (100 mg) by mouth once daily. 90 Tablet 3 08/25/2023 Active rosuvastatin (CRESTOR) 5 mg tabletIndications:Hy perlipidemia, unspecified hyperlipidemia type Take 1 Tablet (5 mg) by mouth at bedtime. 90 Tablet 3 10/06/2023 Active Active Problems Problem Noted Date Diagnosed Date SABRINA 01/27/2023 AHI- 46 01/28/2023 Primary hypertension 01/20/2023 S/P rotator cuff repair 07/17/2022 Major depressive disorder wi th single episode, in full remission 01/27/2007 Family history of malignant neoplasm of gastrointestinal tract 01/27/2007 Overview (08/25/2023): Colonoscopy 04/2013 normal repeat in 5 years Colonoscopy 05/2018 normal, repeat in 5 years Colonoscopy 04/2022 normal, repeat in 5 years Resolved Problems Problem Noted Date Diagnosed Date Resolved Date Excessive daytime sleepiness 01/22/2023 05/01/2023 Encounters Date Type Department Care Team Description 11/10/2023 9:45 AM CDT Nurse/Clinic Staff Only [facility] [address] [place] [address] Immunization/Injectio n (ALLERGY INJECTIONS ) 11/10/2023 Travel 10/13/2023 9:45 AM CDT Nurse/Clinic Staff Only [facility] [address] [place] [address] Immunization/Injectio n (ALLERGY INJECTIONS ) 10/13/2023 Travel 10/06/2023 8:40 AM CDT Office Visit [facility] [address] [place] [address] Terry Shrama MD Physical (63 yr old male) 10/06/2023 Travel 09/22/2023 12:45 PM CDT Nurse/Clinic Staff Only [facility] [address] [place] [address] Immunization/Injectio n (ALLERGY INJECTIONS ) 09/22/2023 Travel from Last 3 Months Immunizations Name Administration Dates Next Due COVID-19 vaccine (Onyu 30mcg/0.3mL) P MD GabyV 05/17/2021,04/11/2021 Td (Age >=7 Years) 04/25/2022 Tdap 10/21/2011 Zoster (Shingrix-RZV, recombinant) 10/06/2023, Family History Medical History Relation Name Comments Psychiatric illness Brother Depressi on Hyperlipidemia Father Hypertension Father Psychiatric illness Father Depressi on Stroke Father Psychiatric illness Mother Depressi on Relation Name Status Comments Brother Father Mother Social History Tobacco Use Types Packs/Day Years Used Date Smoking Tobacco: Never Passive Smoke Exposure: Never Smokeless Tobacco: Never Tobacco Cessation:Counseling Given: Not Answered Alcohol Use Standard Drinks/Week Comments Not Currently 0 (1 standard drink = 0.6 oz pur e alcohol) PHQ-2 Answer Date Recorded PHQ-2 TOTAL SCORE 0 10/06/2023 Social Connections Answer Date Recorded Frequency of Communication with Friends and Fami ly 0 08/25/2023 Financial Resource Strain Answer Date R ecorded Difficulty of Paying Living Expenses 2 08/25/2023 Difficulty of Paying Living Expenses 1 08/25/2023 Food Insecurity Answer Date Recorded Worried About Running Out of Food in the Last Ye ar 1 08/25/2023 Transportation Needs Answer Date Record ed Lack of Transportation (Medical) 1 08/25/2023 Housing Stability Answer Date Recorded Unable to Pay for Housing in the Last Year 1 08/25/2023 Sex and Gender Information Value Date Recorded Sex Assigned at Not on file Gender Identity Not on file Sexual Orientation Not on file Obstetrics History Last Filed Vital Signs Vital Sign Reading Time Taken Comments Blood Pressure 110/71 10/06/2023 8:56 AM CDT Pulse 75 10/06/2023 8:56 AM CDT Temperature 36.6 ??C (97.9 ??F) 06/23/2023 2:17 PM CD T Respiratory Rate 14 05/14/2022 11:45 AM PROGRAM ARRANGER Oxygen Saturation 98% 10/06/2023 8:56 AM CDT Inhaled Oxygen Concentration - - Weight 92.3 kg (203 lb 6.4 oz) 10/06/2023 8:56 A M CDT Height 174 cm (5' 8.5) 10/06/2023 8:56 AM CDT Body Mass Index 30.47 10/06/2023 8:56 AM CDT Plan of Treatment Upcoming Encounters Date Type Department Care Team (Late st Contact Info) Description 12/08/2023 9:45 AM CDT Nurse/Clinic Staff Only [facility] [address] [place] [address] Health Maintenance Due Date Last Done Comments COVID-19 vaccine series (2022- season) 2023 05/17/2021, 04/11/2021 Influenza for age 50-64 11/23/2023 BMI (ht and wt on same day) for age 18+ 10/05/2024 10/06/2023, 08/25/2023, 06/23/2023, Additional history exists Depression screening for age 12+ 10/05/2024 10/06/2023, 08/25/2023, 04/25/2022, Additional history exists Colonoscopy through age 75 05/14/202705/14, 05/14/2022, 05/14/2022, Additional history exists Lipids for age 45-75 08/24/2028 08/25/2023, 04/25/2022, 01/11/2019, Additional history exists Tetanus booster 04/25/2032 04/25/2022, 09/23, 10/21/2011 Tdap Completed 10/22/2012 (Comp leted outside of [facility]), 10/21/2011 HIV for age 15-65 Completed 04/25/2022 Hepatitis C screening for age 18-79 Completed 04/25/2022 Zoster (shingles) series for age 50+ Completed 10/06/2023, 04/25/2022 Pneumococcal series for age 6-64 Aged Out No longer eligible based on patient's age to complete this topic Procedures Procedure Name Priority Date/Time Associated Diagnosis Comments LIPID PANEL Routine 08/25/2023 8:51 AM CDT Hyperlipidemia, unspecified hyperlipidemia type COLONOSCOPY DIAGNOSTIC Routine 05/14/2022 10:20 AM PROGRAM ARRANGER Hematochezia Family history of colon cancer LC HIV-1/O/2, 4TH GENERATION Routine 04/25/2022 12:43 PM PROGRAM ARRANGER Screening for HIV (human immunodeficiency virus) LC HCV ANTIBODY RFX TO QUANT PCR Routine 04/25/2022 12:43 PM PROGRAM ARRANGER Need for hepatitis C screening test from Last 3 Months or Most Recently Relevant to Health Maintenance Results * (ABNORMAL) LIPID PANEL (08/25/2023 8:51 AM CDT) CHOLESTEROL,TOTAL 206(H) 100 - 199 mg/dL 08/25/2023 7:25 PM CDT [facility] Comment: Cholesterol, Total Reference Ranges Desirable <200 mg/dL Borderline 200-239 mg/dL High >=240 mg/dL TRIGLYCERIDES 126 <150 mg/dL 08/25/2023 7:25 PM CDT [facility] HDL CHOLESTEROL 40(L) >40 mg/dL 7:25 PM CDT [facility] NON-HDL CHOLESTEROL 166(H) <145 mg/dl 08/25/2023 7:25 PM CDT [facility] CHOL/HDL RATIO 5.15(H) <4.50 08/25/2023 7:25 PM CDT [facility] LDL CHOLESTEROL 141(H) <=130 mg/dL 08/25/2023 7:25 PM CDT [facility] VLDL CHOLESTEROL 25 <=30 mg/dL 08/25/2023 7:25 PM CDT [facility] PROVIDER ORDERED STATUS RANDOM 08/25/2023 7:25 PM CDT [facility] Blood BLOOD SPECIMEN / Unknown Venipuncture / Unknown 08/25/2023 8:51 AM CDT 08/25/2023 8:52 AM CDT Terry Sharma MD CHEMISTRY [facility] [address] [address], * COLONOSCOPY (05/14/2022 9:53 AM PROGRAM ARRANGER) 05/14/2022 9:53 AM PROGRAM ARRANGER Narrative Transcriptions Mayo Freitas MD - 05/14/2022 11:36 AM CST Patient Name: Jonathan Rowan Procedure Date: 05/14/2022 Gender: Male Date of : 1960 Admit Type: Outpatient Procedure: Colonoscopy Proceduralist: Mayo Freitas MD , Vicky Bethea RN (Nurse), Yazmin Tirado (Nurse) Referring MD: Terry Sharma Indications/Pre-Op Diagnosis: Evaluation of unexplained GI bleeding presenting with Hematochezia, Lastcolonoscopy: May 2018, Family history of colon cancerin a first-degree relative before age 60 years Medications: Fentanyl 150 micrograms IV, Midazolam 4 mgIV, The level of sedation administered wasmoderate Procedure Description: The patient had risks, benefits and alternatives explained to andgave informed consent. The patient had a stable cardiopulmonary status and judged an adequate candidate for conscious sedation. The [id number] was passed through the anus and advanced to the cecum, identified by appendiceal orifice and ileocecal valve. Thecolonoscopy was performed without difficulty. The patient tolerated the procedure well. The quality of the bowel preparation was good. The ileocecal valve, appendiceal orifice, and rectum were photographed. Complications: No immediate complications. Estimated Blood Loss & Specimen: Estimated blood loss: none. Specimen collected - None Findings: The perianal and digital rectal examinations were normal. Scattered small-mouthed diverticula were found in the sigmoidcolon. Non-bleeding internal hemorrhoids were found. The hemorrhoids weresmall. The exam was otherwise without abnormality on direct and retroflexion views. Impressions/Post-Op Diagnosis: - Diverticulosis in the sigmoid colon. - Non-bleeding internal hemorrhoids. - The examination was otherwise normal on direct and retroflexionviews. - No specimens collected. Recommendation: - Patient has a contact number available for emergencies. The signsand symptoms of potential delayed complications were discussed with the patient. Return to normal activities tomorrow. Written discharge instructions were provided to the patient. - Resume previous diet. - Continue present medications. - Repeat colonoscopy in 5 years for screening purposes. Moderate Sedation: A time out was performed before the procedure. Moderate (conscious) sedation was administered by the endoscopy nurse and supervised bythe endoscopist. The following parameters were monitored: oxygensaturation, heart rate, blood pressure, EKG, CO2, respiratory rate, adequacy of pulmonary ventilation and reponse to care. Please refer to the patient's medical record flowsheets and nursing notes for moderate sedation details. Total physician intraservice time was 15 minutes. Mayo Freitas MD 05/14/2022 11:31:59 AM This report has been signed electronically. Note Initiated On: 05/14/2022 9:53 AM Procedure Code(s): --- Professional --- 73707, Colonoscopy, flexible; diagnostic, including collection of specimen(s) bybrushing or washing, when performed (separateprocedure) Diagnosis Code(s): --- Professional --- K64.8, Other hemorrhoids K92.1, Melena (includes Hematochezia) Z80.0, Family history of malignant neoplasmof digestive organs K57.30, Diverticulosis of large intestine without perforation or abscess withoutbleeding CPT copyright 2020 [employer]. All rights reserved. The codes documented in this report are preliminary and upon wraparound facilitator reviewmay be revised to meet current compliance requirements. Scope In: 11:13:05 AM Scope Withdrawal Time 0 hours 6 minutes 30 seconds Scope Out: 11:25:49 AM Mayo Freitas MD PROCEDURE ORD * LC HCV ANTIBODY RFX TO QUANT PCR (04/25/2022 12:43 PM PROGRAM ARRANGER) HCV Ab 0.1 0.0 - 0.9 s/co ratio 04/28/2022 10:06 PM PROGRAM ARRANGER [facility] ([facility]) Blood BLOOD SPECIMEN / Unknown Venipuncture / Unknown 04/25/2022 12:43 PM PROGRAM ARRANGER 04/25/2022 12:46 PM PROGRAM ARRANGER Narrative [facility] ([facility]) - 04/28/2022 10:06 PM PROGRAM ARRANGER Performed at: ??01 - [address] ??[id number] Traffic Inspector: Donte Yeung MD, Phone: ??[phone] Terry Sharma MD LABORATORY [facility] ([facility]) [facility] [place] [address], * LC HIV-1/O/2, 4TH GENERATION (04/25/2022 12:43 PM PROGRAM ARRANGER) HIV Scr 4th Gen Non Reactive Non Reactive 04/27/2022 1:08 PM PROGRAM ARRANGER [facility] Comment: HIV Negative HIV-1/HIV-2 antibodies and HIV-1 p24 antigen were NOT detected. There is no laboratory evidence of HIV infection. Blood BLOOD SPECIMEN / Unknown Venipuncture / Unknown 04/25/2022 12:43 PM PROGRAM ARRANGER 04/25/2022 12:46 PM PROGRAM ARRANGER Narrative [facility] - 04/27/2022 1:08 PM PROGRAM ARRANGER Performed at: ??01 - [address] ??[id number] Traffic Inspector: Donte Yeung MD, Phone: ??[phone] Terry Sharma MD LABORATORY [facility] [address] [place] [address], from Last 3 Months or Most Recently Relevant to Health Maintenance Care Teams Respite Provider Relationship Specialty Start Date End Date Terry Sharma MD [address] [place] [address] PCP - General Family Practice 04/25/22
[2023-12-07] MEDS: diphenhydrAMINE 50 MG/ML inj IVP (14:01)
[2023-12-07] MEDS: METHYLPREDNISOLONE SOD SUCC 62.5 MG/ML (125) 125 MG IVP (14:01)
[2023-12-07 14:15] VITALS: PULSE 88; RESP 16; O2SAT 94; O2SAT 98
[2023-12-07 14:31] VITALS: BP 121/74; PULSE 90; RESP 16; O2SAT 93
[2023-12-07 15:01] VITALS: BP 115/78; PULSE 87; RESP 14; O2SAT 95
[2023-12-07 15:31] VITALS: BP 122/74; PULSE 86; RESP 14; O2SAT 95
[2023-12-07 16:01] VITALS: BP 135/82; PULSE 90; RESP 14; TEMP 36.8
== END 2023-12-07 16:02 | disposition home or self-care (01) ==
PROVIDERS: Emergency Provider Family Medicine; PCP Surgery
DX: T63.441A Toxic effect of venom of bees, accidental (unintentional), initial encounter (principal); R22.1 Localized swelling, mass and lump, neck
CPT/HCPCS: 94761; 96374; 96375; 99284; J0171; J1200; J2919

== ENCOUNTER 2024-01-28 19:45 | Emergency (ER) | payer BC, SELFPAY ==
--- NOTE | 2024-01-28 19:46 | ED_ITS ---
HPI - General Adult General Date Seen: 01/28/24 Chief complaint: Skin/Abscess/Foreign Body Stated complaint: Allergic reaction, hives and swollen Time Seen by Provider: 01/28/24 19:46 History of Present Illness HPI narrative: 63-year-old male with a history of hypertension (losartan), high cholesterol (rosuvastatin), osteoarthritis with plans for an upcoming hip surgery with [facility] ortho. 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 He has an EpiPen at home but has not had to use it before. He presents to the ER for evaluation of itching hives on the posterolateral upper left arm after an insect bite (he thinks probably a spider bite). He also developed some itching hives on his right posterior arm where he was not bit. He was working in his garage this evening for repairing something. There were multiple spiders around. He abruptly felt a stinging pain in the back of his left upper arm over the lateral triceps that he thinks was probably a spider diet, but he did not see the insect. After that he developed a spreading blo tchy, itchy rash consistent with hives from his left elbow all the way up to his left shoulder. Also a few hives on his right posterior arm. He does not having any trouble breathing. No sensation of foreign body or swelling in his throat. No chest pain or shortness of breath. No nausea or consistent abdominal pain. No other hives. With concern for a potentially evolving allergic reaction he came directly here to the ER. He did not stop to use his EpiPen her take any other medicines at home. Related Data Home Medications ?Medication ?Instructions ?Recorded ?Confirmed losartan 50 mg tablet 50 mg PO DAILY 05/27/22 01/28/24 rosuvastatin 5 mg tablet 5 mg PO DAILY 12/07/23 01/28/24 Previous Rx's ?Medication ?Instructions ?Recorded epinephrine 0.3 mg/0.3 mL 0.3 ml IM Q5-15M PRN #2 ea 10/18/22 injection, auto-injector (EpiPen 2-Alfredo) epinephrine 0.3 mg/0.3 mL 0.3 mg (0.3 mL) IM Q5-15M PRN #2 ea 12/07/23 injection, auto-injector (EpiPen 2-Alfredo) Allergies Allergy/AdvReac Type Severity Reaction Status Date / Time bee venom protein (honey bee) Allergy Intermediate Hives Verified 12/30/23 13:53 [facility] Medical History (Updated 01/28/24 @ 20:59 by Arsenio Almendarez MD) Primary hypertension ?I10 - Essential (primary) hypertension (ICD-10) Tear of left biceps muscle ?S46.212A - Strain of muscle, fascia and tendon of other parts of biceps, left arm, initial encounter (ICD-10) Dislocation of shoulder region ?S43.006A - Unspecified dislocation of unspecified shoulder joint, initial encounter (ICD-10) Anterior dislocation of right shoulder ?S43.014A - Anterior dislocation of right humerus, initial encounter (ICD-10) Surgical History (Updated 01/31/23 @ 09:23 by Lauren Gibbons RN) H/O umbilical hernia repair ?Z98.890 - Other specified postprocedural states (ICD-10) ?Z87.19 - Personal history of other diseases of the digestive system (ICD-10) S/P rotator cuff repair (07/17/22) ?Z98.890 - Other specified postprocedural states (ICD-10) Social History Smoking Status: Never smoker Do you use any of these nicotine containing products: None Second hand tobacco smoke exposure: No How often do you have a drink containing alcohol: never AUDIT-C Alcohol total score: 0 Non-prescribed substance use: denies use Caffeine: Yes (coffee 8c/day) Exam Narrative: Exam Narrative: Constitutional: Appears well-developed and well-nourished. Alert. Conversant. Non toxic. HENT: Head: Atraumatic. Nose: Nose normal. Mouth/Throat: Oral mucosa is clear and moist. no trismus. Pharynx normal. Tonsils symmetric. No tonsillar enlargement, erythema, or exudate. Airway patent. Phonation normal. Eyes: Conjunctivae normal. EOM normal. Pupils equal, round, and reactive to light. No scleral icterus. Neck: Normal range of motion. Neck supple. No tracheal deviation present. Cardiovascular: Normal rate, regular rhythm. No gallop. No friction rub. No mu rmur heard. Symmetric radial artery pulses Pulmonary/Chest: Effort normal. No stridor. No respiratory distress. No wheezes. No rales. No rhonchi . Abdominal: Soft.. No distension. No mass. No tenderness. No rebound. No guarding. Musculoskeletal: RUE: Normal range of motion. No tenderness. No deformity LUE: Normal range of motion. No tenderness. No deformity RLE: Normal range of motion. No edema. No tenderness. No deformity LLE: Normal range of motion. No edema. No tenderness. No deformity Neurological: Alert and oriented to person, place, and time. Normal strength. CN II-VII intact. No sensory deficit. GCS eye subscore is 4. GCS verbal subscore is 5. GCS motor subscore is 6. Normal coordination Skin: He has a scattered blotchy macular erythematous rash on his posterior left upper arm consistent with hives. Also a few scattered hives on the lateral right upper arm but more difficult to see them because he has a very colorful overlying tattoo there. No other hives. Skin is warm and dry. No rash noted. No pallor. Normal capillary refill. Psychiatric: Normal mood. Normal affect. Const: Vital Signs, click to edit/add: Vital Signs - 24 hr 01/28/24 19:54 01/28/24 20:30 01/28/24 21:01 Temperature 98.1 F Pulse Rate [Pulse Oximeter] 88 77 Respiratory Rate 16 16 Blood Pressure [Ri ght Upper Arm] 167/97 H Pulse Oximetry 98 95 98 Oxygen Delivery Me thod Room Air Room Air 01/28/24 21:06 Temperature Pulse Rate [Pulse Oximeter] 71 Respiratory Rate 16 Blood Pressure [Ri ght Upper Arm] Pulse Oximetry 97 Oxygen Delivery Me thod Room Air Course Course ED Course: Recheck-doing well. No signs of of all wing symptoms of anaphylaxis. Overall hives are fading and are much less prominent than they were when he arrived. Still a small area roughly 3 x 7 cm on the left posterolateral upper arm. Vital Signs Vital signs: Initial Vital Signs Temperature 98.1 F 01/28/24 19:54 Temperature Source Temporal Artery Scan 01/28/24 19:54 Pulse Rate 88 01/28/24 19:54 Respiratory Rate 16 01/28/24 19:54 Blood Pressure 167/97 H 01/28/24 19:54 Blood Pressure Mean 120 H 01/28/24 19:54 Blood Pressure Position Sitting 01/28/24 19:54 Pulse Oximetry 98 01/28/24 19:54 Oxygen Delivery Method Room Air 01/28/24 19:54 Vital Signs Temperature 98.1 F 01/28/24 19:54 Pulse Rate 88 01/28/24 19:54 Respiratory Rate 16 01/28/24 19:54 Blood Pressure 167/97 H 01/28/24 19:54 Pulse Oximetry 98 01/28/24 19:54 Oxygen Delivery Method Room Air 01/28/24 19:54 Temperature 98.1 F 01/28/24 19:54 Pulse Rate 71 01/28/24 21:06 Respiratory Rate 16 01/28/24 21:06 Blood Pressure 167/97 H 01/28/24 19:54 Pulse Oximetry 97 01/28/24 21:06 Oxygen Delivery Method Room Air 01/28/24 21:06 Medications Administered Medications: Discontinued Medications Generic Name Dose Route Start Last Admin Trade Name Freq PRN Reason Stop Dose Admin Cetirizine HCl 10 mg 01/28/24 20:05 01/28/24 20:12 Cetirizine Hcl 10 Mg Tablet PO 01/28/24 20:06 10 mg ONCE ONE Administration Diphenhydramine HCl 25 mg 01/28/24 20:04 01/28/24 20:12 Diphenhydramine 25 Mg Capsule PO 01/28/24 20:05 25 mg ONCE ONE Administration Prednisone 40 mg 01/28/24 20:04 01/28/24 20:12 Prednisone 20 Mg Tablet PO 01/28/24 20:05 40 mg ONCE ONE Administration Medical Decision Making [facility] Narrative Medical decision making narrative: This patient presents for evaluation of hives affecting his left upper arm and to a lesser extent his right upper arm after he was bit by a spider or stung by an insect about an hour prior to arrival.. Signs and symptoms are consistent with allergic reaction. No airway involvement, bronchospasm, GI symptoms, hypotension, or other sign of anaphylaxis. Patient was treated here with medications as noted above. Symptoms improved after meds. Will send home with epipen, steroids, antihistamines. Potential for rebound reaction was discussed. Return of anaphylactic symptoms were discussed with patient and they were instructed to inject epi-pen and call 911 should these symptoms occur. Given the rapidity of resolution, lack of serious systemic symptoms, lack of respiratory difficulty and no oral or pharyngeal swelling, would not admit at this time for anaphylaxis. There is no signs of anaphylactic shock. Discharge Plan Discharge Clinical Impression: Allergic reaction Patient Disposition: Home, Self-Care Condition: Stable Instructions: General Allergic Reaction (ED) Additional Instructions: As we discussed, if you have worsening hives, trouble breathing, swelling in your throat, dizziness or lightheadedness or any problems, please use her EpiPen and call 911 right away. To help prevent recurrent allergic reaction use antihistamine such as Benadryl 25 mg every 6 hours or a nondrowsy antihistamine such as cetirizine (Zyrtec) or Ana Maria once daily for the next 3 days. If you have any concerns, please come back to the ER or contact your doctor immediately. Prescriptions: No Action losartan 50 mg tablet 50 mg PO DAILY epinephrine [EpiPen 2-Alfredo] 0.3 mg/0.3 mL auto-injector 0.3 ml IM Q5-15M PRNQty: 2 0RF Rx Instructions: do not exceed 3 doses per episode rosuvastatin 5 mg tablet 5 mg PO DAILY epinephrine [EpiPen 2-Alfredo] 0.3 mg/0.3 mL auto-injector 0.3 mg IM Q5-15M PRNQty: 2 0RF Rx Instructions: do not exceed 3 doses per episode Follow Up/Referrals: Terry Sharma MD [Primary Care Provider] - Stand Alone Forms: [employer] Info Instructions
[2024-01-28 19:54] VITALS: BP 167/97; PULSE 88; RESP 16; TEMP 36.7; O2SAT 98; BMI 31.9
[2024-01-28] MEDS: CETIRIZINE HCL 10 MG TABLET PO (20:12)
[2024-01-28] MEDS: predniSONE 20 MG TABLET 40 MG PO (20:12)
[2024-01-28] MEDS: diphenhydrAMINE 25 MG CAPSULE PO (20:12)
--- OUTSIDE RECORDS SUMMARY | 2024-01-28 20:23 | XMS_ITS | Clinical Summary ---
Author Organization [facility] Address [place], [place] [address] Care Team Providers Care Kitchen Chef Name Role Phone Terry Sharma MD Primary Care Provider [phone] Allergies Active Allergy Reactions Criticality Noted Date [...] Encounters Date Type Department Care Team Description 01/22/2024 8:15 AM CDT Nurse/Clinic Staff Only [facility] [address] [facility] [address] Immunization/Injecti on (ALLERGY INJECTIONS ) 01/22/2024 Travel 01/12/2024 Telephone [facility] [address] [facility] [place] [address] Terry Sharma MD Questions 12/22/2023 8:15 AM CDT Nurse/Clinic Staff Only [facility] [address] [facility] [place] [address] Immunization/Injecti on (ALLERGY INJECTIONS ) 12/22/2023 Travel 12/08/2023 2:00 PM CDT Office Visit [facility] [address] [facility] [place] [address] Ted Cartagena MD Allergies (Follow up-anaphylaxis reaction 12/07/23) 12/08/2023 Travel 11/10/2023 9:45 AM CDT Nurse/Clinic Staff Only [facility] [address] [facility] [place] [address] Immunization/Injecti on (ALLERGY INJECTIONS ) 11/10/2023 Travel from Last 3 Months Immunizations Name Administration Dates Next Due COVID-19 vaccine (Dealstruck 30mcg/0.3mL) P F, MDV 05/17/2021,04/11/2021 Td (Age >=7 Years) 04/25/2022 Tdap [...] Never Smokeless Tobacco: Never Tobacco Cessation:Counseling Given: Yes Alcohol Use Standard Drinks/Week Comments Not Currently 0 (1 standard drink = 0.6 oz pur e alcohol) PHQ-2 Answer Date Recorded PHQ-2 TOTAL SCORE 0 10/06/2023 Social Connections Answer Date Recorded Do you often feel lonely or isolated from those around you? 0 08/25/2023 Financial Resource Strain Answer Date R ecorded Difficulty of Paying Living Expenses 2 08/25/2023 Difficulty of Paying Living Expenses 1 08/25/2023 Food Insecurity Answer Date Recorded Do you worry your food will run out before you are able to buy more? 1 08/25/2023 Transportation Needs Answer Date Record ed Does lack of transportation keep you from medica l appointments? 1 08/25/2023 Does lack of transportation keep you from work, meetings or getting things that you need? 1 08/25/2023 Housing Stability Answer Date Recorded What is your housing situation today? 1 08/25/2023 Sex and Gender Information Value Date Recorded Sex Assigned at Not on file Gender Identity Not on file Sexual Orientation Not on file Obstetrics History Last Filed Vital Signs Vital Sign Reading Time Taken Comments Blood Pressure 130/77 12/08/2023 2:18 PM CDT tow er Pulse 78 12/08/2023 2:18 PM CDT Temperature 36.6 ??C (97.9 ??F) 06/23/2023 2:17 PM CD T Respiratory Rate 14 05/14/2022 11:45 AM [employer] Oxygen Saturation 97% 12/08/2023 2:18 PM CDT Inhaled Oxygen Concentration - - Weight 93.9 kg (207 lb) 12/08/2023 2:18 PM CDT Height 174 cm (5' 8.5) 10/06/2023 8:56 AM CDT Body Mass Index 31.01 10/06/2023 8:56 AM CDT Plan of Treatment Upcoming Encounters Date Type Department Care Team (Late st Contact Info) Description 02/03/2024 3:15 PM [employer] Office Visit [facility] [address] [place] [address] [address] Terry Sharma MD [address] [place] [address] 03/04/2024 9:00 AM [employer] Nurse/Clinic Staff Only [facility] [address] [place] [address] [address] 03/22/2024 8:15 AM [employer] Nurse/Clinic Staff Only [facility] [address] [place] [address] Health Maintenance Due Date Last Done Comments COVID-19 vaccine series (2023- season) 2023 05/17/2021, 04/11/2021 Influenza for age [...] type COLONOSCOPY DIAGNOSTIC Routine 05/14/2022 10:20 AM [employer] Hematochezia Family history of colon cancer LC HIV-1/O/2, 4TH GENERATION Routine 04/25/2022 12:43 PM [employer] Screening for HIV (human immunodeficiency virus) LC HCV ANTIBODY RFX TO QUANT PCR Routine 04/25/2022 12:43 PM [employer] Need for hepatitis C screening test from Last 3 Months or Most Recently Relevant to Health Maintenance Results * (ABNORMAL) LIPID PANEL (08/25/2023 8:51 AM CDT) CHOLESTEROL,TOTAL 206(H) 100 - 199 mg/dL 08/25/2023 7:25 PM CDT [facility] Comment: Cholesterol, Total Reference Ranges Desirable <200 mg/dL Borderline 200-239 mg/dL High >=240 mg/dL TRIGLYCERIDES 126 <150 mg/dL 08/25/2023 7:25 PM CDT [facility] HDL CHOLESTEROL 40(L) >40 mg/dL 7:25 PM CDT [facility] NON-HDL CHOLESTEROL 166(H) <145 mg/dl 08/25/2023 7:25 PM CDT [facility] CHOL/HDL RATIO 5.15(H) <4.50 08/25/2023 7:25 PM CDT [facility] LDL CHOLESTEROL 141(H) <=130 mg/dL 08/25/2023 7:25 PM CDT [facility] VLDL CHOLESTEROL 25 <=30 mg/dL 08/25/2023 7:25 PM CDT [facility] PROVIDER ORDERED STATUS RANDOM 08/25/2023 7:25 PM CDT [facility] Blood BLOOD SPECIMEN / Unknown Venipuncture / Unknown 08/25/2023 8:51 AM CDT 08/25/2023 8:52 AM CDT Terry Sharma MD CHEMISTRY [facility] [address] [place] [address], * COLONOSCOPY (05/14/2022 9:53 AM [employer]) 05/14/2022 9:53 AM [employer] Narrative Transcriptions Mayo Freitas MD - 05/14/2022 11:36 AM CST Patient Name: Jonathan Rowan Procedure Date: 05/14/2022 Gender: Male Date of : 1960 Admit Type: Outpatient Procedure: Colonoscopy Proceduralist: Mayo Freitas MD , Vicky Bethea, RN (Nurse), Yazmin Tirado (Nurse) Referring MD: [...] an adequate candidate for conscious sedation. The [id number] was passed through the anus and advanced [...] 9:53 AM Procedure Code(s): --- Professional --- 38874, Colonoscopy, flexible; diagnostic, including collection of specimen(s) bybrushing or washing, when performed (separateprocedure) Diagnosis Code(s): --- Professional --- K64.8, Other hemorrhoids K92.1, Melena (includes Hematochezia) Z80.0, Family history of malignant neoplasmof digestive organs K57.30, Diverticulosis of large intestine without perforation or abscess withoutbleeding CPT copyright 2020 [employer]. All rights reserved. The codes documented in this report are preliminary and upon client engagement specialist reviewmay be revised to meet current compliance requirements. Scope In: 11:13:05 AM Scope Withdrawal Time 0 hours 6 minutes 30 seconds Scope Out: 11:25:49 AM Mayo Freitas MD PROCEDURE ORD * LC HCV ANTIBODY RFX TO QUANT PCR (04/25/2022 12:43 PM [employer]) HCV Ab 0.1 0.0 - 0.9 s/co ratio 04/28/2022 10:06 PM [employer] [facility] Blood BLOOD SPECIMEN / Unknown Venipuncture / Unknown 04/25/2022 12:43 PM [employer] 04/25/2022 12:46 PM [employer] Narrative [facility] - 04/28/2022 10:06 PM [employer] Performed at: ??[address] ??[id number] [employer] Coach: Donte Yeung MD, Phone: ??[phone] Terry Sharma MD LABORATORY Performing Organization Address [facility] Co de Phone Number [facility] ([facility]) [address] [place] [address] * HIV-1/O/2, 4TH GENERATION (04/25/2022 12:43 PM [employer]) Pathologist [facility] HIV Scr 4th Gen Non Reactive Non Reactive 04/27/2022 1:08 PM [employer] [facility] Comment: HIV Negative HIV-1/HIV-2 antibodies and HIV-1 p24 antigen were NOT detected. There is no laboratory evidence of HIV infection. Blood BLOOD SPECIMEN / Unknown Venipuncture / Unknown 04/25/2022 12:43 PM [employer] 04/25/2022 12:46 PM [employer] Narrative [facility] - 04/27/2022 1:08 PM [employer] Performed at: ??[address] ??[id number] [employer] Coach: Donte Yeung MD, Phone: ??[phone] Terry Sharma MD LABORATORY [facility] [address] [place] [address] from Last 3 Months or Most Recently Relevant to Health Maintenance Care Teams Kitchen Chef Relationship Specialty Start Date End Date Terry Sharma MD [address] [address] PCP - General Family Practice 04/25/22
[2024-01-28 20:30] VITALS: PULSE 77; RESP 16; O2SAT 95
[2024-01-28 21:01] VITALS: O2SAT 98
[2024-01-28 21:06] VITALS: PULSE 71; RESP 16; O2SAT 97
== END 2024-01-28 21:06 | disposition home or self-care (01) ==
PROVIDERS: Emergency Provider Emergency Medicine; PCP Surgery
DX: L50.9 Urticaria, unspecified (principal); T63.481A Toxic effect of venom of other arthropod, accidental (unintentional), initial encounter
CPT/HCPCS: 94761; 99282; 99283; A9270; J7512

== ENCOUNTER 2024-02-16 06:11 | Day surgery (SDC) | payer BC, SELFPAY ==
[2024-02-16] VITALS (18 sets, daily range): BP systolic 92–135; BP diastolic 55–87; PULSE 48–77; RESP 14–16; TEMP 36.2–36.8; O2SAT 88–98; BMI 32.1
[2024-02-16] MEDS: LACTATED RINGERS 1000 ML 1,000 ML 100 ML IV (05:45)
--- OUTSIDE RECORDS SUMMARY | 2024-02-16 06:14 | XMS_ITS | Clinical Summary ---
Author Organization [employer] [facility] Address [place], [place] [address] Care Team Providers Care Cooker Tender Name Role Phone Terry Sharma MD Primary Care Provider [phone] Allergies Active Allergy Reactions Criticality Noted Date [...] 11 05/01/2023 Active losartan (COZAAR) 100 mg tabletIndications:H TN (hypertension) Take 1 Tablet (100 mg) by mouth once daily. 90 Tablet 3 08/25/2023 Active rosuvastatin (CRESTOR) 10 mg tabletIndications:H yperlipidemia, unspecified hyperlipidemia type Take 1 Tablet (10 mg) by mouth at bedtime. 90 Tablet 3 02/04/2024 Active rosuvastatin (CRESTOR) 5 mg tabletIndications:H yperlipidemia, unspecified hyperlipidemia type Take 1 Tablet (5 mg) by mouth at bedtime. 90 Tablet 3 10/06/2023 02/04/20 24 Discontinu ed(*Medica tion adjustment ) Active Problems Problem Noted Date Diagnosed Date [...] Encounters Date Type Department Care Team Description 02/03/2024 3:15 PM FINISHER COLD ROLLING Office Visit [facility] [address] [facility] [place] [address] Terry Sharma MD Preoperative Exam (Right Hip replacement at [facility] by Dr. Dacosta 02/16/24) 02/03/2024 Travel 01/29/2024 11:30 AM FINISHER COLD ROLLING Office Visit [facility] [address] [facility] [place] [address] Alesha Zavala PA Arm Pain/problem 01/29/2024 Travel 01/22/2024 8:15 AM CDT Nurse/Clinic Staff Only [address] [address] Immunization/Injecti on (ALLERGY INJECTIONS ) 01/22/2024 Travel 01/12/2024 Telephone [facility] [address] [facility] [place] [address] Terry Sharma MD Questions 12/22/2023 8:15 AM CDT Nurse/Clinic Staff Only [address] [address] Immunization/Injecti on (ALLERGY INJECTIONS ) 12/22/2023 Travel 12/08/2023 2:00 PM CDT Office Visit [address] [address] Ted Cartagena MD Allergies (Follow up-anaphylaxis reaction 12/07/23) 12/08/2023 Travel from Last 3 Months Immunizations Name Administration Dates Next Due COVID-19 vaccine ([employer] 30mcg/0.3mL) P LUIS Griffin 05/17/2021,04/11/2021 INFLUENZA, IIV3 PF (AGE >= 6 MO) 02/03/2024 Td (Age >=7 Years) 04/25/2022 Tdap 10/21/2011 [...] Sign Reading Time Taken Comments Blood Pressure 119/79 02/03/2024 3:08 PM FINISHER COLD ROLLING Pulse 68 02/03/2024 3:08 PM FINISHER COLD ROLLING Temperature 36.6 C (97.8 F) 01/29/2024 11:28 AM FINISHER COLD ROLLING Respiratory Rate 14 05/14/2022 11:45 AM FINISHER COLD ROLLING Oxygen Saturation 97% 02/03/2024 3:08 PM FINISHER COLD ROLLING Inhaled Oxygen Concentration - - Weight 95.9 kg (211 lb 8 oz) 02/03/2024 3:08 PM FINISHER COLD ROLLING Height 174 cm (5' 8.5) 10/06/2023 8:56 AM CDT Body Mass Index 31.69 10/06/2023 8:56 AM CDT Plan of Treatment Upcoming Encounters Date Type Department Care Team (Late st Contact Info) Description 03/04/2024 9:00 AM FINISHER COLD ROLLING Nurse/Clinic Staff Only [facility] [address] [place] [address] 03/22/2024 8:15 AM FINISHER COLD ROLLING Nurse/Clinic Staff Only [facility] [address] [place] [address] [address] Health Maintenance Due Date Last Done Comments COVID-19 vaccine series ( season) 2023 05/17/2021, 04/11/2021 BMI (ht and wt on same day) for age 18+ 10/05/2024 10/06/2023, 08/25/2023, 06/23/2023, Additional history exists Depression screening for age 12+ 10/05/2024 10/06/2023, 08/25/2023, 04/25/2022, Additional history exists Colonoscopy through age 75 05/14/202705/14, 05/14/2022, 05/14/2022, Additional history exists Lipids for age 45-75 02/02/2029 02/03/2024, 08/25/2023, 04/25/2022, Additional history exists Tetanus booster 04/25/2032 04/25/2022, 09/23, 10/21/2011 Tdap Completed 10/22/2012 (Comp leted outside of [facility]), 10/21/2011 HIV for age 15-65 Completed 04/25/2022 Hepatitis C screening for age 18-79 Completed 04/25/2022 Zoster (shingles) series for age 50+ Completed 10/06/2023, 04/25/2022 Influenza for age 50-64 Completed 02/03/2024 Pneumococcal series for age 6-64 Aged Out No longer eligible based on patient's age to complete this topic Procedures Procedure Name Priority Date/Time Associated Diagnosis Comments LIPID PANEL Routine 02/03/2024 3:50 PM FINISHER COLD ROLLING Hyperlipidemia, unspecified hyperlipidemia type HEMOGLOBIN Routine 02/03/2024 3:50 PM FINISHER COLD ROLLING Primary hypertension POTASSIUM Routine 02/03/2024 3:50 PM FINISHER COLD ROLLING Primary hypertension COLONOSCOPY DIAGNOSTIC Routine 05/14/2022 10:20 AM FINISHER COLD ROLLING Hematochezia Family history of colon cancer LC HIV-1/O/2, 4TH GENERATION Routine 04/25/2022 12:43 PM FINISHER COLD ROLLING Screening for HIV (human immunodeficiency virus) LC HCV ANTIBODY RFX TO QUANT PCR Routine 04/25/2022 12:43 PM FINISHER COLD ROLLING Need for hepatitis C screening test from Last 3 Months or Most Recently Relevant to Health Maintenance Results * HEMOGLOBIN (02/03/2024 3:50 PM FINISHER COLD ROLLING) HEMOGLOBIN 14.7 13.2 - 17.1 g/dL [facility] Blood BLOOD SPECIMEN / Unknown 02/03/2024 3:50 PM FINISHER COLD ROLLING 02/03/2024 3:51 PM FINISHER COLD ROLLING Terry Sharma MD HEMATOLOGY Performing Organization Address [facility]/ZIP Co de Phone Number [employer] [facility] [address] [facility] [place] [place] [address], [place] [phone] [facility] [address] [place] [address] * POTASSIUM (02/03/2024 3:50 PM FINISHER COLD ROLLING) POTASSIUM 3.9 3.5 - 5.3 mmol/L [facility] Blood BLOOD SPECIMEN / Unknown 02/03/2024 3:50 PM FINISHER COLD ROLLING 02/03/2024 3:51 PM FINISHER COLD ROLLING Terry Sharma MD CHEMISTRY Performing Organization Address City/[facility]/ZIP Co de Phone Number [employer] [facility] [address] [place] [address], [place] [phone] [facility] [address] [place] [address] * (ABNORMAL) LIPID PANEL (02/03/2024 3:50 PM FINISHER COLD ROLLING) CHOLESTEROL, TOTAL 229(H) <200 mg/dL [facility] HDL CHOLESTEROL 48 > OR = 40 mg/dL [facility] TRIGLYCERIDES 190(H) <150 mg/dL [facility] LDL-CHOLESTEROL 148(H) mg/dL (calc) [facility] Comment: Reference range: <100 Desirable range <100 mg/dL for primary prevention; <70 mg/dL for patients with CHD or diabetic patients with > or = 2 CHD risk factors. LDL-C is now calculated using the Mayo-Alegria calculation, which is a validated novel method providing better accuracy than the Friedewald equation in the estimation of LDL-C. Mayo CELIS et al. EVELIO. 2013;310(19): 8805-7176 (http://education.[employer]/faq/NDG902) CHOL/HDLC RATIO 4.8 <5.0 (calc) [facility] NON HDL CHOLESTEROL 181(H) <130 mg/dL (calc) [facility] Comment: For patients with diabetes plus 1 major ASCVD risk factor, treating to a non-HDL-C goal of <100 mg/dL (LDL-C of <70 mg/dL) is considered a therapeutic option. Blood BLOOD SPECIMEN / Unknown 02/03/2024 3:50 PM FINISHER COLD ROLLING 02/03/2024 3:51 PM FINISHER COLD ROLLING Terry Sharma MD CHEMISTRY [employer] [facility] [address] [place] [address], [facility] [address] [place] [address] * COLONOSCOPY (05/14/2022 9:53 AM FINISHER COLD ROLLING) 05/14/2022 9:53 AM FINISHER COLD ROLLING Narrative Transcriptions Mayo Freitas MD - 05/14/2022 [...] an adequate candidate for conscious sedation. The [id number] was passed through the anus and advanced [...] 9:53 AM Procedure Code(s): --- Professional --- 43386, Colonoscopy, flexible; diagnostic, including collection of specimen(s) bybrushing or washing, when performed (separateprocedure) Diagnosis Code(s): --- Professional --- K64.8, Other hemorrhoids K92.1, Melena (includes Hematochezia) Z80.0, Family history of malignant neoplasmof digestive organs K57.30, Diverticulosis of large intestine without perforation or abscess withoutbleeding CPT copyright 2020 [employer]. All rights reserved. The codes documented in this report are preliminary and upon icd 9 coder reviewmay be revised to meet current compliance requirements. Scope In: 11:13:05 AM Scope Withdrawal Time 0 hours 6 minutes 30 seconds Scope Out: 11:25:49 AM Mayo Freitas MD PROCEDURE ORD * LC HCV ANTIBODY RFX TO QUANT PCR (04/25/2022 12:43 PM FINISHER COLD ROLLING) HCV Ab 0.1 0.0 - 0.9 s/co ratio 04/28/2022 10:06 PM FINISHER COLD ROLLING [facility] ([facility]) Blood BLOOD SPECIMEN / Unknown Venipuncture / Unknown 04/25/2022 12:43 PM FINISHER COLD ROLLING 04/25/2022 12:46 PM FINISHER COLD ROLLING Narrative [facility] ([facility]) - 04/28/2022 10:06 PM FINISHER COLD ROLLING Performed at: - [address] [id number] Flat Lock Operator: Donte Yeung MD, Phone: [phone] Terry Sharma MD LABORATORY Performing Organization Address [facility] Co de Phone Number [facility] ([facility]) [address] [place] [address] * HIV-1/O/2, 4TH GENERATION (04/25/2022 12:43 PM FINISHER COLD ROLLING) [facility] HIV Scr 4th Gen Non Reactive Non Reactive 04/27/2022 1:08 PM FINISHER COLD ROLLING [facility] ([facility]) Comment: HIV Negative HIV-1/HIV-2 antibodies and HIV-1 p24 antigen were NOT detected. There is no laboratory evidence of HIV infection. Blood BLOOD SPECIMEN / Unknown Venipuncture / Unknown 04/25/2022 12:43 PM FINISHER COLD ROLLING 04/25/2022 12:46 PM FINISHER COLD ROLLING Narrative [facility] ([facility]) - 04/27/2022 1:08 PM FINISHER COLD ROLLING Performed at: [address] [id number] Flat Lock Operator: Donte Yeung MD, Phone: [phone] Terry Sharma MD LABORATORY Performing Organization Address [facility] Co de Phone Number [facility] ([facility]) [address] [place] [address] from Last 3 Months or Most Recently Relevant to Health Maintenance Care Teams Cooker Tender Relationship Specialty Start Date End Date Terry Sharma MD [address] [facility] [address] PCP - General Family Practice 04/25/22
[2024-02-16] MEDS: OXYCODONE (CR) 10 MG TAB.ER.12H PO (06:37)
[2024-02-16] MEDS: ACETAMINOPHEN 500 MG TABLET 1000 MG PO (06:37)
[2024-02-16] MEDS: SODIUM CHLORIDE 0.9 % (FLUSH) 10 ML SYRINGE IVF (06:38)
[2024-02-16] MEDS: MIDAZOLAM HCL 1 MG/ML inj IVP (07:08)
[2024-02-16] MEDS: fentaNYL 100 MCG/2 ML inj IVP (07:08)
--- NOTE | 2024-02-16 07:15 | CRLHL7_ITS ---
For Patients: As a result of the Cures Act, medical imaging exams and procedure reports are released immediately into your electronic medical record. You may view this report before your referring provider. If you have questions, please contact your health care provider. Indication: Hip replacement surgery Technique: AP hip fluoroscopic image. Fluoroscopy time 33.4 seconds. Findings/Impression: Hardware from a right total hip arthroplasty is in satisfactory position. Dictated by Isaac Mendieta MD @ 02/16/2024 10:05:37 AM (Electronically Signed)
--- NOTE | 2024-02-16 07:21 | W.PM.H&PU ---
History & Physical Update History & Physical Update H&P Reviewed and patient assessed: No changes noted
--- NOTE | 2024-02-16 07:23 | CRLHL7_ITS ---
For Patients: As a result of the Cures Act, medical imaging exams and procedure reports are released immediately into your electronic medical record. You may view this report before your referring provider. If you have questions, please contact your health care provider. Indication: Total hip replacement Technique: AP hip centered pelvis and lateral view right hip Findings/Impression: Hardware from a right total hip arthroplasty is in satisfactory position. Bone alignment is normal. No sign of acute fracture. Postop changes are within normal limits. Dictated by Isaac Menditea MD @ 02/16/2024 10:06:58 AM (Electronically Signed)
--- NOTE | 2024-02-16 07:26 | SUR.PREOP ---
TIME?OUT:?0708 PT/RN/MDA?VERIFICATION?OF?SURGICAL?SITE,?PROCEDURE,?AND?CONSENT OBTAINED?PRIOR?TO?INVASIVE?PROCEDURE.
[2024-02-16] MEDS: CEFAZOLIN 2 GM in 0.9 % SODIUM CHLORIDE Mini-bag 100 ML IVPB (07:33)
[2024-02-16] MEDS: TRANEXAMIC ACID 100 MG/ML INJ 1000 MG IV (07:42)
--- NOTE | 2024-02-16 07:42 | P.NB_ITS ---
Nerve Block Nerve Block Time Seen by Provider: 07:15 Date Seen: 02/16/24 Type of block requested by surgeon for post-operative analgesia: ANISA/LFCN Side: right Time out performed: Yes Verification of patient name: Yes Verification of date of : Yes Site marking: site marked Name of person performing procedure: Keaton Continuous monitoring Was continuous monitoring of O2 sat, B/P, equipment monitor phototypesetting, recorded every 15 minutes?: Yes Procedure Checklist: sterile prep, needles and gloves Ultrasound guided. Images saved: Yes Medications given in 5ml increments after negative aspiration: Ropivicaine %: 0.5 mL: 30 Needle gauge: 20 Precedex (mcg): 25 Patient tolerated procedure well: Yes Additional comments: Needle noted below psoas tendon needle noted adjacent to LFCN Block Charges Block Charge (with Pro Fee): Other Periph Nerve Block Use of Ultrasound Machine for Block: Yes- US Guidance/pain block
--- NOTE | 2024-02-16 07:43 | W.ANESCHARGE ---
Anesthesia Charges Start Date/Time Anesthesia Start Date: 02/16/24 Anesthesia Start Time: 07:17 Stop Date/Time Anesthesia Stop Date: 02/16/24 Anesthesia Stop Time: 09:21
--- NOTE | 2024-02-16 07:56 | SUR.OPER ---
PATIENT QUESTIONS ANSWERED SATISFACTORILY PREOPERATIVELY. PATIENT BROUGHT TO OR #2 PER CART AFTER ADMINISTRATION OF A BLOCK. Patient positioned supine on OR #2 bed. The perioperative team supported arms bilaterally on arm boards. Final approval of positioning by surgeon.
--- NOTE | 2024-02-16 08:49 | P.ORPRC_ITS ---
Procedure Note Date of procedure: 02/16/24 Procedure: PREOPERATIVE DIAGNOSIS: 1. Right hip osteoarthritis, severe, primary POSTOPERATIVE DIAGNOSIS: 1. Right hip osteoarthritis, severe, primary PROCEDURE: 1. Right total hip arthroplasty-anterior approach 2. [address]17 - intraoperative fluoroscopy up to 1 hour. SURGEON: Boris Osuna MD. SADDLE CUTTER: Terry Mari PA-C; RAJANI Abrams - Of note, a skilled assistant professor of biochemistry was critical for this case to aid in patient positioning, tissue retraction, limb manipulation/positioning, and closure. ANESTHESIA: General endotracheal anesthetic EBL: 650 mL IMPLANTS: DePuy J&J uncemented total hip [place] cup size 50, hole eliminator, +4 neutral liner Actis stem, high offset, size 5 +1 mm ceramic 32mm head COMPLICATIONS: None evident INDICATIONS: The patient is a pleasant 63-year-old who has experienced severe right hip pain and difficulty bearing weight. Workup included x-rays which revealed severe osteoarthrosis in the hip. Given the deformity, the dysfunction, and the pain, as well as the failure of nonoperative management, recommendation was made for surgery. FINDINGS: Full-thickness chondral loss diffusely throughout femoral head and acetabulum. Osteophytes around the perimeter of femoral head/neck junction and acetabulum. Moderate effusion upon entering the joint. DESCRIPTION OF PROCEDURE: Following a thorough discussion of risks, benefits, and alternatives consent was obtained and the right hip was marked. The patient was brought to the operating room and placed supine on the operating table. Induction of anesthesia was undertaken. 2 g IV Ancef and 1 g tranexamic acid was administered within 1 hr of incision preoperatively. Proper time-out was performed identifying proper patient, site, procedure. The operative extremity was prepped and draped in the appropriate sterile fashion using ChloraPrep after the patient was positioned on the [place] table with head in neutral alignment and all bony prominences well padded. C-arm fluoroscopic imaging was utilized to confirm proper pelvis rotation and position, and to get true AP films of both the contralateral left, and the affected right hip. This is for comparison. A longitudinal incision was made starting approximately 1 cm distal to the ASIS, and 3-4 cm lateral. The incision was extended distally aiming toward the lateral border the patella. Sharp incision through skin and bovie cautery through the subcutaneous tissue allowed identification of the TFL fascia. This was sharply divided, and the fascia bluntly released from the muscle fibers as we dissected medial. Upon coming to the medial border, we were able to retract the TFL laterally, and penetrated the deeper fascia and identify the crossing circumflex vessels. These were ligated/cauterized. The rectus was elevated from the capsule, and retractors placed laterally and medially along the femoral neck to help with visualization of the capsule. We then performed an inverted T capsulotomy. The capsule was tagged for later repair. Retractors were placed inside the capsule. The femoral neck was visualized after releasing medially down to the lesser trochanter, along the saddle laterally, and up onto the acetabulum. The femoral neck cut was made in line with our preoperative templating. The head was removed in a single piece, and sized. We turned our attention to acetabular preparation. Initially, the labrum was resected from around the perimeter, the pulvinar was excised, allowing us to visualize the false wall. We started the reaming with a 43 mm reamer. This was medialized down to the true wall. We then enlarged our reamers sequentially up to one size less than the selected cup size. We trialed at the same size and found it to have an excellent fit. The selected cup was then opened, inserted, and impacted in line with the goal of 40? of abduction, and 20-25? of anteversion. This was confirmed on C-arm fluoroscopic imaging to be in the appropriate/goal position. Once the cup was placed we placed a hole eliminator and a liner consistent with preop planning. Attention was turned to the femoral preparation. The limb was extended, externally rotated, and adducted. The posteromedial capsule was released, as retractors were placed allowing excellent access to the proximal femur. Initially a steam box operator was followed by canal finder followed by various broaches. We broached sequentially up to the size noted above, found it to have excellent rotational control, and trialing various heads and necks, revealed that appropriate neck offset, and the above noted head size provided the greatest stability, and druze of length, and offset. C-arm fluoroscopic imaging confirmed position of the stem, as well as leg lengths, which were compared with the pre procedure all fluoroscopic images. Trial implants were removed, the real femoral stem inserted, as was the appropriate head. After reducing, the leg was placed through range of motion and stability was confirmed anterior, posterior, and lateral. A 3 min Betadine soak was then performed, and thorough irrigation with normal saline followed. Closure of the capsule was performed with #1 PDS. Bleeding was confirmed to be controlled at this stage, and the TFL fascia was closed with #0 strata fix. Subcutaneous, and subcuticular closure was performed with 2-0 Vicryl and 4-0 Monocryl, respectively. Dressings were applied, and the patient was awoken from anesthesia and transferred the PACU in stable condition. A skilled assistant professor of biochemistry was critical for this case to aid in patient positioning, tissue retraction, acetabular and proximal femoral exposure, limb manipula tion/positioning, dislocation/relocation, patient safety, and closure. PLAN: 1. Weight bear as tolerated operative extremity. 2. 23 hr perioperative antibiotics. 3. Ice. 4. PT/OT consults for ambulation assistance/mobility education. 5. Social work consult for discharge planning. 6. DVT prophylaxis with at SCDs and Xarelto x5 days followed by aspirin for a total of 1 month..
--- NOTE | 2024-02-16 09:25 | W.ANESCHARGE ---
Anesthesia Charges Start Date/Time Anesthesia Start Date: 02/16/24 Anesthesia Start Time: 07:17 Stop Date/Time Anesthesia Stop Date: 02/16/24 Anesthesia Stop Time: 09:21
[2024-02-16] MEDS: fentaNYL 100 MCG/2 ML inj 50 MCG IVP (09:45)
--- NOTE | 2024-02-16 09:50 | SUR.PHASEI ---
Patient came to the PACU drowsy. reminded to take deep breaths, no pain or nause
--- NOTE | 2024-02-16 09:53 | SUR.PHASEI ---
Patient states pain is still a level 5 but more comfortable. When patient gets sleepy his oxygen saturation level drops to 88. Oxygen reapplied after fentanyl given. Patient meets discharge criteria from PACU
[2024-02-16] MEDS: HYDROmorphone 0.5 mg/0.5 ml inj IVP (11:10)
[2024-02-16] MEDS: hydrOXYzine pamoate 25 MG CAPSULE PO (11:15)
[2024-02-16] MEDS: OXYCODONE 5 MG TABLET PO (11:15)
[2024-02-16] MEDS: ACETAMINOPHEN 325 MG TABLET PO (12:20)
--- NOTE | 2024-02-16 14:50 | SUR.PHASEII ---
Patient back from seeing OT & PT. Passed both. Was able to void in the bathroom. Sitting in recliner at this time waiting for ride to arrive.
== END 2024-02-16 15:15 | disposition home or self-care (01) ==
LOC: OR 06:12
PROVIDERS: PCP Surgery; Visit Provider Orthopaedic Surgery Sports Medicine
PROC: (CPT 27130; principal; 2024-02-16 07:15)
DX: M16.11 Unilateral primary osteoarthritis, right hip (principal); G89.18 Other acute postprocedural pain; I10 Essential (primary) hypertension; G47.33 Obstructive sleep apnea (adult) (pediatric); E78.5 Hyperlipidemia, unspecified; F32.5 Major depressive disorder, single episode, in full remission; Z80.0 Family history of malignant neoplasm of digestive organs
CPT/HCPCS: 27130; 01214; 64450; 73501; 76000; 76942; 97110; 97116; 97161; 97165; 97535; A9270; C1776; J0330; J0690; J1100; J1171; J2250; J2405; J2704; J2710; J2795; J3010; J3475; J3490; J7120

== ENCOUNTER 2024-04-23 11:30 | Outpatient (RCR) | payer BC, SELFPAY ==
--- NOTE | 2024-02-11 10:53 | PT.OPEX ---
PT [facility] Outpatient Eval PT [facility] Outpatient Eval Start: 02/10/24 16:36 Freq: Status: Active Protocol: Document 02/11/24 10:02 [place] (Rec: 02/11/24 10:48 [facility] [id number]) E-signed By Janae Peterson, PT, DPT Physical Therapy Outpatient Evaluation Insurance Information Insurance Name [employer] Medical Diagnosis R ant HENRIK Treating Diagnosis weakness, difficulty amb Referring MD Enrrique Subjective Preferred Name Jonathan Subjective Pain amped up the last month, more limping, antalgic, trendelenburg, increases as the day goes on, moves into his back. Sleeps with CPAP, on his back, that has been ok. Can amb up to 15 min at a time , pain limits. Does use ladder at work, has not been able to do that for pain. Pain Comments moderate R hip into back. 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 Stairs step to pattern, ascends L, descends L. Education provided in post op sequencing Posture flexed at hips, lat L shift, reports R hip pain nearly constant Sensation/Reflexes intact light touch Assessment Assessment/Impression 63 year old male with progressive R hip pain, OA, now limiting work, amb. He is undergoing R ant HENRIK on . Pt presents with weakness R hip flex/abd, knee ext primarily due to pain. Limited SLR on R due to R lateral hip pain. Transfers ind, favors R LE, amb with antalgic gt, + Trendelenburg, limited distances.Pt was instructed in HENRIK ex program (quad sets, ham sets, ankle pumps, heel slides,standing hip abd) per protocol to be practiced pre- operatively and for improved learning post-operatively. Pt was instructed in hospital post-op progression in PT, safety, fall prevention. Pt was instructed in positioning in chair, use of ice, transfer safety, gt safety with walker , stairs, car transfers and outpatient therapy progression . Pt to return 1 week post op for progression of PT goals. Good rehab potential. Primary Functional Limitations impaired ROM, impaired strength, impaired gt, impaired transfers, impaired mobility, impaired balance Plan of Care Rehabilitation Potential Excellent Physical Therapy Goals Within this session: Pt will verbalize understanding of pre -op/post-op safety, mobility and exercises with home program issued and pt returning for ongoing therapy after HENRIK replacement.Within 8 -10 weeks. 1. Pt will amb level surfaces 20 min without an assistive device and no evidence of limp . 2. Pt will ascend/descend 13 stairs with railing reciprocally, safely and independently for household and community mobility. 3. Pt will demonstrate normal strength of surgical hip to prevent substitution of movement, prevent falls with mobility. 4. Pt will be independent in home ex program to promote strength and mobility and to prevent falls. Treatment Plan/Direct Interventions Gait Training,Ice/Cold/ Vasopneumatic,Joint Mobilization,Manual Therapy, Neuromuscular Re-ed,Orthotics/ Braces,Self-Care/Home Management,Therapeutic Activities,Therapeutic Exercises Frequency/Duration 1x/week x 6-8 weeks Patient Will Be Discharged From Therapy Completion of LTG(s),Skills Plateau,Independent w/HEP, Independently Progressing Evaluation Billing Untimed Code Treatment Minutes 16 PT Eval No Charge No Complexity Low Student Supervision Licensed PT Directed/Approved Treatment, Reviewed POC with Patient,Made Contact with Patient, Participated in Treatment Documentation Reviewed By Residential Installer Yes Certification Information Initial Certification Date 02/11/24 Ending Certification Date 05/11/24 Provider Signature Required Communication Only-No Signature Required Provider Signature Shows Agreement With POC & Medical Necessity Physician NPI Number Write NPI# Here Physician Comment/Change : Physician Signature & Date Requested Please Sign/Date Here
== END 2024-04-23 12:32 | disposition home or self-care (01) ==
PROVIDERS: PCP Surgery; Visit Provider Orthopaedic Surgery Sports Medicine
DX: M16.11 Unilateral primary osteoarthritis, right hip (principal); R53.1 Weakness; R26.2 Difficulty in walking, not elsewhere classified; Z51.89 Encounter for other specified aftercare
CPT/HCPCS: 97110; 97112; 97116; 97140; 97161